=== PATIENT | female | born 2000 | race Caucasian/White ===

== ENCOUNTER 2022-03-11 13:53 | Emergency (ER) | payer BC, SELFPAY ==
[2022-03-11 14:20] VITALS: BP 130/76; PULSE 109; RESP 14; TEMP 37.3; O2SAT 100
--- NOTE | 2022-03-11 15:05 | ED.URI ---
HPI - URI/Sore Throat General Chief Complaint: Upper Respiratory Infection Stated Complaint: uri Source: patient, RN notes reviewed and old records reviewed Mode of arrival: ambulatory Limitations: no limitations History of Present Illness HPI Narrative: 21 year old female who presents to [facility] care with complaints of nasal congestion, headache, cough some low grade fevers for the past 2 days with complaint of loss of taste and smell noted last evening. 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 Patient reports that she has had COVID vaccinations and also Booster. Patient denies any shortness of breath or any sore throat. Patient has been taking Tylenol for her symptoms. MD elicited complaint: fever (low grade), cough, rhinorrhea and nasal congestion Pain scale (0-10): 2 Treatments prior to arrival: acetaminophen Related Data Home Medications Medication Instructions Recorded Confirmed No Home Medications 03/11/22 03/11/22 Allergies Allergy/AdvReac Type Severity Reaction Status Date / Time No Known Allergies Allergy Verified 03/11/22 14:24 Review of Systems Review of Systems: CONSTITUTIONAL: Denies malaise, chills, sweats, or fever. EYES: Denies visual changes, redness, or discharge. ENT: Reports rhinorrhea, congestion, sinus pain,no otalgia, no sore throat. CARDIOVASCULAR: Denies chest pain, palpitations, or edema. RESPIRATORY: Reports cough.? Denies dyspnea. GASTROINTESTINAL: Denies abdominal pain, nausea, vomiting, diarrhea SKIN: Denies rash or itching. MUSCULOSKELETAL: Denies myalgia. NEUROLOGIC:reports headache. All systems reviewed & are unremarkable except as noted in HPI and below PMFSH Past Medical History Medical History (Updated 03/12/22 @ 19:34 by Sisi Munson NP) No pertinent past medical history Social History Social History (Updated 03/12/22 @ 19:42 by Sisi Munson NP) Smoking status: Never smoker Alcohol intake: unknown Substance use type: does not use Gender identity (if verbalized by the patient): Female Comments At time of signature, agree with nursing past medical, surgical, social and family history. There is no relevant family history pertinent to the presenting complaint Exam Narrative: GENERAL: Well-appearing, well-nourished, and in no acute distress. HEAD: Normocephalic EYES: PERRLA, conjunctivae clear ENT: Nares clear, turbinates edematous and erythematous, clear discharge. Mucous membranes moist. TM pearly payne with dull light reflex bilaterally; no tragal tenderness. Oropharynx erythematous without lesions. Tonsils not enlarged and without exudate, no drooling, no hoarseness, no trismus, uvula midline. NECK: Supple. No lymphadenopathy CHEST: Clear to auscultation, breath sounds equal. No wheezing, rhonchi, rales, or stridor. No respiratory distress, speaks in full sentences.SAO2 100% on room air, cough HEART: Regular rate and rhythm. No murmur heard. SKIN: Warm, dry, no rash. NEURO: Alert and oriented x3. PSYCH: Normal mood and affect Course Course Emergency Course: Patient is aware of diagnosis, understands and agrees to treatment plan.? Anticipatory guidance given.? Patient agrees to follow-up as directed and is aware of reasons to seek care at the emergency department. Portions of this record may have been created with voice recognition software Level of Care: Express Care Visit Vital Signs Vital signs: Vital Signs Temperature 37.3 C 03/11/22 14:20 Pulse Rate 109 H 03/11/22 14:20 Respiratory Rate 14 03/11/22 14:20 Blood Pressure 130/76 03/11/22 14:20 Pulse Oximetry 100 03/11/22 14:20 Oxygen Delivery Room Air 03/11/22 14:20 Temperature 37.3 C 03/11/22 14:20 Pulse Rate 109 H 03/11/22 14:20 Respiratory Rate 14 03/11/22 14:20 Blood Pressure 130/76 03/11/22 14:20 Pulse Oximetry 100 03/11/22 14:20 Oxygen Delivery Room Air 03/11/22 14:20 Reviewed MDM
== END 2022-03-11 14:33 | disposition home or self-care (01) ==
PROVIDERS: Emergency Provider Registered Nurse
DX: U07.1 COVID-19 (principal)
CPT/HCPCS: 87426; 99203; C9803; G0463